=== PATIENT | male | born 1985 | race African-American/Black ===

== ENCOUNTER → 2019-10-28 | Emergency (ER) | payer OTHER ==
[~2019-10-28] VITALS: Ht 170.2 cm; Wt 72.6 kg
[~2019-10-28] MED LIST: ULTRACET PO
== END | disposition left against medical advice (07) ==
LOC: ER 10:40
DX: S70.02XA Contusion of left hip, initial encounter (principal); S40.012A Contusion of left shoulder, initial encounter; V19.9XXA Pedal cyclist (driver) (passenger) injured in unspecified traffic accident, initial encounter; Y93.89 Activity, other specified; Y92.89 Other specified places as the place of occurrence of the external cause; Y99.8 Other external cause status